=== PATIENT | male | born 1990 | race American Indian/Alaskan Native ===

== ENCOUNTER 2017-07-20 11:30 | Emergency (ER) | payer SELFPAY ==
[2017-07-20 11:48] VITALS: BP 148/72
[2017-07-20 13:04] LABS: Bilirubin,Urine NEG (Negative); Blood,Urine NEG (Negative); Ketones,Urine NEG (Negative); Leukocyte Esterase,Urine TR (Negative); Mucus,Urine 1+ /HPF; Nitrite,Urine NEG (Negative); Protein,Urine <15 mg/dL mg/dL (Negative)
--- NOTE | 2017-07-20 13:52 | Emergency Department Report ---
ED Female HPI - General Chief complaint: Urogenital-Male Stated complaint: FREQUENT URINATING Time Seen by Provider: 07/20/17 13:09 Source: patient Mode of arrival: Ambulatory Limitations: No Limitations - Related Data Home Medications Medication Instructions Recorded Confirmed Last Taken No Known Home Medications [No 07/20/17 07/20/17 Unknown Reported Home Medications] Allergies Allergy/AdvReac Type Severity Reaction Status Date / Time No Known Allergies Allergy Unverified 07/20/17 11:44 ED Review of Systems ROS: Stated complaint: FREQUENT URINATING Other details as noted in HPI ED Past Medical Hx - Past Medical History Previous Medical History?: No - Surgical History Past Surgical History?: No - Social History Smoking Status: Never Smoker Substance Use Type: None - Medications Home Medications: Home Medications Medication Instructions Recorded Confirmed Last Taken Type No Known Home Medications [No 07/20/17 07/20/17 Unknown History Reported Home Medications] ED Physical Exam - General Limitations: No Limitations ED Course Vital Signs 07/20/17 11:44 Temperature 98.1 F Pulse Rate 63 Respiratory 18 Rate Blood Pressure 148/72 O2 Sat by Pulse 100 Oximetry Critical care attestation.: If time is entered above; I have spent that time in minutes in the direct care of this critically ill patient, excluding procedure time. ED Disposition Condition: Stable Referrals: PRIMARY CARE, [Primary Care Provider] - 3-5 Days
[2017-07-20] MEDS ORDERED: ZITHROMAX PO ONE (13:58)
[2017-07-20] MEDS ORDERED: FLAGYL PO ONE (13:58)
[2017-07-20] MEDS ORDERED: ROCEPHIN IM STA (13:58)
[2017-07-20] MEDS ORDERED: XYLOCAINE 1% MPF 5 mL INFILTRATI ONE (13:58)
--- NOTE | 2017-07-20 13:58 | Emergency Department Report ---
ED Male HPI - General Chief complaint: Urogenital-Male Stated complaint: FREQUENT URINATING Time Seen by Provider: 07/20/17 13:09 Source: patient Mode of arrival: Ambulatory Limitations: No Limitations - History of Present Illness Initial comments: Patient complaining of urinary frequency for 4 days and report penile discharge for 1 day. He said he possibly exposed to STD from having sex 2 weeks ago. He denies any painful urination. Pain is 0-10. Denies abdominal or back pain. Denies any fever or chills or nausea or vomiting. Patient studies here to be tested for STD. MD Complaint: penile discharge Onset/Timin -: days(s) Radiation: none Severity scale (0 -10): 0 new sexual partner discharge, other (urinary frequency). denies: swelling, mass, rash, urinary retention, blood in urine, dysuria, fever, nausea/vomiting, incontinence - Related Data Sexually active: Yes Previous Rx's Medication Instructions Recorded Last Taken Type Ciprofloxacin HCl [Ciprofloxacin 500 mg PO Q12HR #14 tab 07/20/17 Unknown Rx TAB] Allergies Allergy/AdvReac Type Severity Reaction Status Date / Time No Known Allergies Allergy Unverified 07/20/17 11:44 ED Review of Systems ROS: Stated complaint: FREQUENT URINATING Other details as noted in HPI Comment: All other systems reviewed and negative Constitutional: no symptoms reported ENT: denies: throat pain Respiratory: no symptoms reported Cardiovascular: denies: chest pain, palpitations, dyspnea on exertion, edema, syncope, paroxysmal nocturnal dyspnea Gastrointestinal: denies: abdominal pain, nausea, vomiting, diarrhea Genitourinary: frequency, discharge. denies: urgency, dysuria, hematuria, testicular pain, testicular mass Musculoskeletal: denies: back pain, joint swelling, arthralgia, myalgia Skin: denies: rash Neurological: denies: headache ED Past Medical Hx - Past Medical History Previous Medical History?: No - Surgical History Past Surgical History?: No - Family History Family history: no significant - Social History Smoking Status: Never Smoker Substance Use Type: None - Medications Home Medications: Home Medications Medication Instructions Recorded Confirmed Last Taken Type Ciprofloxacin HCl [Ciprofloxacin 500 mg PO Q12HR #14 tab 07/20/17 Unknown Rx TAB] ED Physical Exam - General Limitations: No Limitations General appearance: alert, in no apparent distress - Head Head exam: Present: atraumatic, normocephalic, normal inspection - Eye Eye exam: Present: normal appearance, PERRL, EOMI Pupils: Present: normal accommodation - ENT ENT exam: Present: normal exam, normal orophraynx, mucous membranes moist - Neck Neck exam: Present: normal inspection, full ROM. Absent: tenderness, meningismus, lymphadenopathy - Respiratory Respiratory exam: Present: normal lung sounds bilaterally. Absent: chest wall tenderness - Cardiovascular Cardiovascular Exam: Present: regular rate, normal rhythm, normal heart sounds. Absent: systolic murmur, diastolic murmur - GI/Abdominal GI/Abdominal exam: Present: soft, normal bowel sounds. Absent: distended, tenderness, guarding, rebound, rigid - Extremities Exam Extremities exam: Present: normal inspection, full ROM, normal capillary refill , other (no clubbing, cyanosis or edema to extremities. +2 pulses to extremities and no neurovascular compromise). Absent: tenderness, pedal edema, joint swelling, calf tenderness - Back Exam Back exam: Present: normal inspection, full ROM. Absent: tenderness, CVA tenderness (R), CVA tenderness (L), muscle spasm, paraspinal tenderness, vertebral tenderness, rash noted - Neurological Exam Neurological exam: Present: alert, oriented X3, normal gait - Psychiatric Psychiatric exam: Present: normal affect, normal mood - Skin Skin exam: Present: warm, dry, intact, normal color. Absent: rash ED Course Vital Signs 07/20/17 11:44 Temperature 98.1 F Pulse Rate 63 Respiratory 18 Rate Blood Pressure 148/72 O2 Sat by Pulse 100 Oximetry - Reevaluation(s) Reevaluation #1: 07/20/17 14:21 I discussed the patient that penile discharge is not normal in male. I discussed with him that we'll send his urine out for gonorrhea and chlamydia but he will need to wait for at least 5 days to get results. I also gave him a alternative to get treatment for gonorrhea Chlamydia and Trichomonas and patient chose to be treated in hospital and to follow up with health department in 7-10 days for recheck. Patient given Rocephin 1 g IM to cover gonorrhea and UTI, azithromycin 1 g by mouth to cover chlamydia and Flagyl 2 g by mouth for Trichomonas. He had no reaction from medication ED Medical Decision Making - Lab Data Lab Results 07/20/17 Range/Units 12:31 Urine Color Yellow (Yellow) Urine Turbidity Clear (Clear) Urine pH 7.0 (5.0-7.0) Ur Specific [place] 1.027 (1.003-1.030) Urine Protein <15 mg/dl (Negative) mg/dL Urine Glucose (UA) Neg (Negative) mg/dL Urine Ketones Neg (Negative) mg/dL Urine Blood Neg (Negative) Urine Nitrite Neg (Negative) Urine Bilirubin Neg (Negative) Urine Urobilinogen 4.0 (<2.0) mg/dL Ur Leukocyte Esterase Tr (Negative) Urine WBC (Auto) 19.0 H (0.0-6.0) /HPF Urine RBC (Auto) 3.0 (0.0-6.0) /HPF Urine Mucus 1+ /HPF Urine culture pending [facility] pending - Medical Decision Making ED course: She had here report that he was possibly exposed to STD with urinary frequency and penile drainage. Urine culture and Gonorrhea and chlamydia sent and pending. Urinalysis positive for white blood cell and leukocyte Estrace. Patient given Rocephin 1 g IM to cover UTI and gonorrhea, Flagyl 2 g to cover Trichomonas and azithromycin 1 g to cover chlamydia. Patient given report on urinalysis and that his gonorrhea and chlamydia and urine culture tests will be back in approximately 5-7 days. I expressed to him that he needs to return to the health department in 7-10 days for repeat testing if urine and STD. I also encouraged him to tell his partner that he has been treated for STD in emergency room. I counseled the patient that he needs to practice safe sex and to refrain from drinking all call for the next 7 days as well as medication given for Trichomonas can cause negative reaction with all call. I also informed him that he needs to refrain from having sexual activity for at least 2 weeks and that he needs to get tested and get negative herself before he can start having sex again. I discussed with him that he needs to make sure that his partner gets tested and treated. Patient discharged home with prescription for ciprofloxacin to treat urinary tract infection. Critical care attestation.: If time is entered above; I have spent that time in minutes in the direct care of this critically ill patient, excluding procedure time. ED Disposition Clinical Impression: Acute cystitis without hematuria, Concern about STD in male without diagnosis, Abnormal penile discharge Disposition: DC-01 TO HOME OR SELFCARE Is pt being admited?: No Does the pt Need Aspirin: No Condition: Stable Instructions: Safe Sex (ED), Sexually Transmitted Diseases (ED), Urinary Tract Infection in Men (ED) Additional Instructions: Please follow up with the health department in 7-10 days for Take antibiotic as prescribed for urinary tract infection Increased fluid intake Please practice safe sex His partner know that you're treated for STD in emergency room and that they will need to get tested. Refrain from drinking alcohol over the next 7 days. Please refrain from having sexual activity for the next 10-14 days Prescriptions: Ciprofloxacin HCl [Ciprofloxacin TAB] 500 mg PO Q12HR #14 tab [facility] - 7-10 days Forms: Accompanied Note, Work/School Release Form(ED)
== END 2017-07-20 14:44 | disposition home or self-care (01) ==
LOC: ED 11:30
DX: N30.00 Acute cystitis without hematuria (principal)
CPT/HCPCS: 81001; 87086; 96372; 99283; J0696